=== PATIENT | male | born 1970 | race Two or more races ===

== ENCOUNTER → 2025-08-05 | Emergency (ER) | payer OTHER ==
[~2025-08-05] VITALS: Ht 170.2 cm; Wt 98.0 kg
[~2025-08-05] MED LIST: FUROSEMIDE20 MG PO; SPIRONOLACTONE100 MG PO; XIFAXAN550 MG PO
[2025-08-05 08:52] VITALS: BP 148/83; O2SAT 100
== END | disposition left against medical advice (07) ==
LOC: ER 08:31
DX: Z53.21 Procedure and treatment not carried out due to patient leaving prior to being seen by health care provider (principal)